=== PATIENT | female | born 1935 | race Caucasian/White ===

== ENCOUNTER 2018-11-01 18:33 | Observation (INO) | payer OTHER ==
--- OUTSIDE RECORDS SUMMARY | 2018-11-01 18:36 | XMS REPORT ---
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) Problem Cardiac defibrillator in place Z95.810 Active Problem Primary insomnia F51.01 Active Problem Nausea alone R11.0 Active Problem Anorexia R63.0 Active Problem Seasonal allergies J30.2 Active Problem Mixed hyperlipidemia E78.2 Active Problem Ischemic cardiomyopathy I25.5 Active Problem LBBB (left bundle branch block) I44.7 Active Problem PVD (peripheral vascular disease) I73.9 Active Problem Allergic rhinitis, unspecified J30.9 Active seasonality, unspecified trigger Problem Hypertension, unspecified type I10 Active Problem 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
--- OUTSIDE RECORDS SUMMARY | 2018-11-01 18:36 | XMS REPORT ---
:1935 Author Organization eClinicalWorks Care Team Providers Name Role Phone Obrja, [facility] Provider Role Unavailable Allergies, Adverse Reactions, Alerts Substance Reaction Event Type IVP dye Info Not Available Drug Allergy Lexiscan Info Not Available Drug Allergy Latex Info Not Available Drug Allergy Zelnorm Info Not Available Drug Allergy Oxycodone HCl Info Not Available Drug Allergy Norvasc Info Not Available Drug Allergy Zithromax Info Not Available Drug Allergy [place] Flavor Info Not Available Drug Allergy NIFEdipine Info Not Available Drug Allergy Mometasone Furoate Info Not Available Drug Allergy Lovastatin Info Not Available Drug Allergy Losartan Potassium Info Not Available Drug Allergy Kenalog Info Not Available Drug Allergy Dermatop Info Not Available Drug Allergy Cetaphil Info Not Available Drug Allergy Banana Concentrate Info Not Available Drug Allergy Altace Info Not Available Drug Allergy Actonel Info Not Available Drug Allergy Problems Problem Type Condition Code Onset Dates Condition Status Problem 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5 Active Assessment Ischemic cardiomyopathy I25.5 Active Assessment Hypertension, unspecified type I10 Active Assessment Allergic rhinitis, unspecified J30.9 Active seasonality, unspecified trigger Assessment Primary insomnia F51.01 Active Assessment 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 63030594220 10 MG Orally Active 1 tablet Calcium Once a day Levothyroxine [facility] 00176898119 75 MCG Orally Active 1 tablet Sodium Once a day on an empty stomach in the morning Metoprolol [facility] 21511961145 25 MG Orally Active 1 tablet Succinate ER Once a day Clopidogrel [facility] 55943522623 75 MG Orally Active 1 tablet Bisulfate Once a day Alprazolam [facility] 59420500400 0.5 MG Orally Active 1 tablet Once a day Results No Known Results Summary Purpose eClinicalWorks Submission
--- OUTSIDE RECORDS SUMMARY | 2018-11-01 18:37 | XMS REPORT ---
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
--- OUTSIDE RECORDS SUMMARY | 2018-11-01 18:37 | XMS REPORT ---
:1935 Author Organization eClinicalWorks Care Team Providers Name Role Phone Borja Formerly [facility] Provider Role Unavailable Allergies, Adverse Reactions, Alerts Substance Reaction Event Type IVP dye Info Not Available Drug Allergy Lexiscan Info Not Available Drug Allergy Latex Info Not Available Drug Allergy Zelnorm Info Not Available Drug Allergy Oxycodone HCl Info Not Available Drug Allergy Norvasc Info Not Available Drug Allergy Zithromax Info Not Available Drug Allergy [place] Flavor Info Not Available Drug Allergy NIFEdipine [...] Type Condition Code Onset Dates Condition Status Assessment Anxiety F41.9 Active Assessment Anorexia R63.0 Active Assessment Cardiac defibrillator in place Z95.810 Active Assessment PVD (peripheral vascular disease) I73.9 Active Assessment 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) Problem 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 Assessment Allergic rhinitis, unspecified J30.9 Active seasonality, unspecified trigger Problem Hypothyroidism, unspecified type E03.9 Active Assessment Primary insomnia F51.01 Active Problem LBBB (left bundle branch block) I44.7 Active Problem 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) Problem Anorexia R63.0 Active Problem Nausea alone R11.0 Active Problem Seasonal allergies J30.2 Active Assessment Hypertension, unspecified type I10 Active Assessment Ischemic cardiomyopathy I25.5 Active Problem Anxiety F41.9 Active Assessment 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 Problem Cardiac defibrillator in place Z95.810 Active Problem Primary insomnia F51.01 Active Problem Mixed hyperlipidemia E78.2 Active Problem Ischemic cardiomyopathy I25.5 Active Assessment Hypothyroidism, unspecified type E03.9 Active Assessment Mixed hyperlipidemia E78.2 Active Assessment Renal insufficiency N28.9 Active Problem Allergic rhinitis, unspecified J30.9 Active seasonality, unspecified trigger Problem Hypertension, unspecified type I10 Active Problem 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 Problem PVD (peripheral vascular disease) I73.9 Active Medications Medication Code Code Instructions Start End Status Dosage System Date Date Rosuvastatin [facility] 23561252277 10 MG Orally Active 1 tablet Calcium Once a day Clopidogrel [facility] 74144977317 75 MG Orally Active 1 tablet Bisulfate Once a day Zofran [facility] 47656003591 4 MG Orally Aug 09, Active 1 tablets every 8 hours 2017 for N/V Levothyroxine [facility] 31132574465 50 MCG Orally Inactive 1 tablet Sodium Once a day on an empty stomach in the morning Metoprolol [facility] 43446353172 25 MG Orally Active 1 tablet Succinate ER Once a day Levothyroxine [facility] 32179432177 75 MCG Orally Active 1 tablet Sodium Once a day on an empty stomach in the morning Alprazolam [facility] 91513388744 0.5 MG Orally Active 1 tablet Once a day at bedtime prn insomnia/ anxiety Results No Known Results Summary Purpose eClinicalWorks Submission
--- OUTSIDE RECORDS SUMMARY | 2018-11-01 18:37 | XMS REPORT ---
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
[2018-11-01 19:22] LABS: Absolute Monocytes 0.7 K/uL (0.1-1.3); Absolute Neutrophil 4.6 K/uL (1.8-8.0); Basophils % 0.8 % (0-1.3); Hematocrit 40.5 % (36.0-45.0); Lymphocytes % 15.4 % (15.3-44.8); MPV 8.7 fL (7.6-11.3); Monocytes % 10.1 % (3.3-12.3); RBC Red Blood Cell Count 4.81 M/uL (3.86-4.86)
[2018-11-01 19:35] LABS: Protime INR 1.01
[2018-11-01 19:44] LABS: Albumin 3.6 g/dL (3.4-5.0); Bilirubin Direct 0.2 mg/dL (0-0.2); Bilirubin Total 0.6 mg/dL (0.2-1.0); Magnesium 2.5 mg/dL (1.8-2.4); Potassium 4.4 mmol/L (3.5-5.1); Troponin (Emerg Dept Use Only) 0.02 ng/mL (0.0-0.045)
[2018-11-01] MEDS ORDERED: ASPIRIN 81 MG CHEWABLE TABLET ONE (20:05)
--- NOTE | 2018-11-01 20:10 | RAD REPORT ---
EXAM DESCRIPTION: RAD - Chest Single View - 11/01/2018 8:04 pm CLINICAL HISTORY: CHEST PAIN Chest pain. COMPARISON: No comparisons FINDINGS: Portable technique limits examination quality. Prominent emphysematous changes are present throughout the lungs with a small right pleural effusion. The heart is mildly enlarged in size with a single lead pacer/ defibrillator device. No displaced fr actures.Aortic atherosclerosis. IMPRESSION: COPD with small right pleural effusion.
--- NOTE | 2018-11-01 20:33 | ER ---
Nurse's Notes [facility] Name: Nasima Fry Age: 83 yrs Sex: Female : 1935 Arrival Date: 11/01/2018 Time: 18:37 Bed 25 Private MD: Diagnosis: Chest pain, unspecified Presentation: 11/01 18:46 Presenting complaint: EMS states: patient has shortness of breath and chest and back mg2 discomfort since 1700 today while cooking. Transition of care: patient was not received from another setting of care. Onset of symptoms was November 01, 2018 at 17:00. Risk Assessment: Do you want to hurt yourself or someone else? Patient reports no desire to harm self or others. Initial Sepsis Screen: Does the patient meet any 2 criteria? No. Patient's initial sepsis screen is negative. Does the patient have a suspected source of infection? No. Patient's initial sepsis screen is negative. Care prior to arrival: None. 18:46 Method Of Arrival: EMS: [facility] mg2 18:46 Acuity: LAYLA 3 mg2 Triage Assessment: 19:29 General: Appears in no apparent distress. comfortable, Behavior is calm, cooperative. mg2 22:24 Pain: Denies pain. mg2 Historical: - Allergies: 18:53 Hydrocodone-Acetaminophen; mg2 18:53 oxycodone; mg2 18:53 statin; mg2 18:53 IVP DYE; mg2 - Home Meds: 18:53 levothyroxine oral [Active]; Metoprolol Tartrate Oral [Active]; HLD meds [Active]; mg2 valsartan oral oral [Active]; - PMHx: 18:53 Hypothyroidism; 2 heart stents; mg2 - PSHx: 18:53 cataract surgery; Lumpectomy; left leg surgery; mg2 20:47 ICD; mg2 - Immunization history:: Flu vaccine is up to date. - Social history:: Smoking status: Patient/guardian denies using tobacco, Patient/guardian denies using alcohol, street drugs, IV drugs, Patient/guardian denies using The patient lives with family. - Ebola Screening: : No symptoms or risks identified at this time. - Family history:: not pertinent. Screenin:54 Abuse screen: Denies threats or abuse. Denies injuries from another. Nutritional mg2 screening: No deficits noted. Tuberculosis screening: No symptoms or risk factors identified. Fall Risk None identified. Assessment: 18:55 Reassessment: No changes from previously documented assessment. mg2 Vital Signs: 18:48 BP 156 / 86; Pulse 93; Resp 18; Temp 98; Pulse Ox 96% on R/A; Weight 36.29 kg; Height 5 mg2 ft. 0 in. (152.40 cm); Pain 4/10; 19:00 BP 153 / 66; Pulse 90; Resp 18; Pulse Ox 96% on R/A; mg2 19:00 BP 160 / 77; Pulse 87; Resp 18; Pulse Ox 98% on R/A; mg2 22:10 BP 149 / 68; Pulse 69; Resp 8; Pulse Ox 95% on R/A; Pain 0/10; mg2 18:48 Body Mass Index 15.62 (36.29 kg, 152.40 cm) mg2 ED Course: 18:37 Patient arrived in ED. mg2 18:45 Jennifer Ross MD is Attending Physician. ma2 18:46 Feliz Leo, [facility] is Primary Nurse. mg2 18:48 Triage completed. mg2 18:54 Arm band placed on. mg2 18:55 Patient has correct armband on for positive identification. traffic monitor specialist on. Pulse mg2 ox on. NIBP on. Door closed. Warm blanket given. 19:29 No provider procedures requiring assistance completed. Inserted saline lock: 20 gauge mg2 in left antecubital area, using aseptic technique. Blood collected. 20:06 XRAY Chest (1 view) In Process Unspecified. EDMS 20:32 Jennifer López MD is Hospitalizing Provider. ma2 22:25 Patient admitted, IV remains in place. mg2 Administered Medications: 19:56 Drug: Aspirin Chewable Tablet 324 mg Route: PO; mg2 20:44 Follow up: Response: No adverse reaction mg2 Outcome: 20:32 Decision to Hospitalize by Provider. ma2 22:25 Admitted to Tele accompanied by tech, via wheelchair, room 404, with chart, Report mg2 called to MULU Siddiqui 22:25 Condition: stable 22:25 Instructed on the need for admit, Demonstrated understanding of instructions. 22:51 Patient left the ED. mg2 Signatures: Dispatcher [employer] EDAK Jennifer Ross MD MD ma2 Feliz Leo RN RN mg2
--- NOTE | 2018-11-01 20:33 | EDPHYS ---
Physician Documentation [facility] Name: Nasima Fry Age: 83 yrs Sex: Female : 1935 Arrival Date: 11/01/2018 Time: 18:37 Bed 25 Private MD: ED Physician Jennifer Ross HPI: 11/01 19:07 This 83 yrs old Female presents to ER via EMS with complaints of chest pain. ma2 19:07 Onset: suddenly, 2 hour(s) ago. The pain radiates to Associated signs and symptoms: ma2 Pertinent positives: shortness of breath, Pertinent negatives: cough, dizziness, lower extremity swelling, vomiting. The chest pain is described as dull. Duration: The patient or guardian reports a single episode. Severity of pain: At its worst the pain was moderate in the emergency department the pain is unchanged. Historical: - Allergies: 18:53 Hydrocodone-Acetaminophen; mg2 18:53 oxycodone; mg2 18:53 statin; mg2 18:53 IVP DYE; mg2 - Home Meds: 18:53 levothyroxine oral [Active]; Metoprolol Tartrate Oral [Active]; HLD meds [Active]; mg2 valsartan oral oral [Active]; - PMHx: 18:53 Hypothyroidism; 2 heart stents; mg2 - PSHx: 18:53 cataract surgery; Lumpectomy; left leg surgery; mg2 20:47 ICD; mg2 - Immunization history:: Flu vaccine is up to date. - Social history:: Smoking status: Patient/guardian denies using tobacco, Patient/guardian denies using alcohol, street drugs, IV drugs, Patient/guardian denies using The patient lives with family. - Ebola Screening: : No symptoms or risks identified at this time. - Family history:: not pertinent. ROS: 19:07 Constitutional: Negative for fever, chills, and weight loss. ma2 19:07 Cardiovascular: Positive for chest pain, Negative for edema, palpitations, acute changes. 19:07 All other systems are negative. Exam: 19:07 Constitutional: This is a well developed, well nourished patient who is awake, alert, ma2 and in no acute distress. Chest/axilla: Normal chest wall appearance and motion. Nontender with no deformity. No lesions are appreciated. Cardiovascular: Regular rate and rhythm with a normal S1 and S2. No gallops, murmurs, or rubs. Normal PMI, no JVD. No pulse deficits. Respiratory: Lungs have equal breath sounds bilaterally, clear to auscultation and percussion. No rales, rhonchi or wheezes noted. No increased work of breathing, no retractions or nasal flaring. Abdomen/GI: Soft, non-tender, with normal bowel sounds. No distension or tympany. No guarding or rebound. No evidence of tenderness throughout. MS/ Extremity: Pulses equal, no cyanosis. Neurovascular intact. Full, normal range of motion. Neuro: Awake and alert, GCS 15, oriented to person, place, time, and situation. Cranial nerves II-XII grossly intact. Motor strength 5/5 in all extremities. Sensory grossly intact. Cerebellar exam normal. Normal gait. Vital Signs: 18:48 BP 156 / 86; Pulse 93; Resp 18; Temp 98; Pulse Ox 96% on R/A; Weight 36.29 kg; Height 5 mg2 ft. 0 in. (152.40 cm); Pain 4/10; 19:00 BP 153 / 66; Pulse 90; Resp 18; Pulse Ox 96% on R/A; mg2 19:00 BP 160 / 77; Pulse 87; Resp 18; Pulse Ox 98% on R/A; mg2 22:10 BP 149 / 68; Pulse 69; Resp 8; Pulse Ox 95% on R/A; Pain 0/10; mg2 18:48 Body Mass Index 15.62 (36.29 kg, 152.40 cm) mg2 MDM: 18:45 Patient medically screened. [facility] 19:07 Differential diagnosis: acute myocardial infarction, acute pericarditis, anxiety, ma2 coronary artery disease gastroesophageal reflux disease (GERD). HEART Score: History: Moderately Suspicious (1), ECG: Non specific repolarization disturbance / LBTB / PM (1), Age: > or = 65 years (2), Risk Factors: > or = 3 Risk factors for atherosclerotic disease (2), Total Score =. The patient was given aspirin in the Emergency Department. 20:31 Data reviewed: vital signs, nurses notes. Counseling: I had a detailed discussion with ma2 the patient and/or guardian regarding: the historical points, exam findings, and any diagnostic results supporting the discharge/admit diagnosis, the presence of at least one elevated blood pressure reading (>120/80) during this emergency department visit, the need for further work-up and treatment in the hospital. ED course: discussed with dr. lo. 11/01 19:01 Order name: Basic Metabolic Panel; Complete Time: 20:29 [facility] 11/01 19:01 Order name: CBC with Diff; Complete Time: 20:29 [facility] 11/01 19:01 Order name: LFT's; Complete Time: 20:29 [facility] 11/01 19:01 Order name: Magnesium; Complete Time: 20:29 [facility] 11/01 19:01 Order name: NT PRO-BNP; Complete Time: 20:29 [facility] 11/01 19:01 Order name: PT-INR; Complete Time: 20:29 [facility] 11/01 19:01 Order name: Troponin (emerg Dept Use Only); Complete Time: 20:29 [facility] 11/01 20:05 Order name: Urine Dipstick--Ancillary (enter results) [facility] 11/01 20:05 Order name: Urine --Ancillary (enter results) [facility] 11/01 20:55 Order name: Troponin I [facility] 11/01 20:55 Order name: Troponin I [facility] 11/01 20:55 Order name: Troponin I [facility] 11/01 20:56 Order name: Lipid Profile [facility] 11/01 20:56 Order name: Lipid Profile [facility] 11/01 19:01 Order name: XRAY Chest (1 view); Complete Time: 20:29 [facility] 11/01 19:01 Order name: EKG; Complete Time: 19: [facility] 11/01 19:01 Order name: Cardiac monitoring; Complete Time: 19: [facility] 11/01 19:01 Order name: EKG - Nurse/Tech; Complete Time: 19:28 [facility] 11/01 19:01 Order name: IV Saline Lock; Complete Time: 19:28 [facility] 11/01 19:01 Order name: Labs collected and sent; Complete Time: 19: [facility] 11/01 19:01 Order name: O2 Per Protocol; Complete Time: 19:28 [facility] 11/01 19:01 Order name: O2 Sat Monitoring; Complete Time: 19:29 [facility] 11/01 20:54 Order name: Heart Healthy [facility] 11/01 20:54 Order name: Echo with Doppler [facility] 11/01 20:54 Order name: EKG Electrocardiogram [facility] 11/01 20:54 Order name: EKG Electrocardiogram [facility] Administered Medications: 19:56 Drug: Aspirin Chewable Tablet 324 mg Route: PO; mg2 20:44 Follow up: Response: No adverse reaction mg2 Disposition: 11/01/18 20:32 Hospitalization ordered by Jennifer Lo for Observation. Preliminary diagnosis is Chest pain, unspecified. - Bed requested for Telemetry/MedSurg (observation). - Status is Observation. mg2 - Condition is Stable. - Problem is new. - Symptoms are unchanged. UTI on Admission? No Signatures: Dispatcher [employer] EDMS Kita Phillips RN RN kl Jennifer Ross MD MD ma2 Feliz Leo RN RN mg2 Corrections: (The following items were deleted from the chart) 21:50 20:32 Hospitalization Ordered by Jennifer Lo MD for Observation. Preliminary kl diagnosis is Chest pain, unspecified. Bed requested for Telemetry/MedSurg (observation). Status is Observation. Condition is Stable. Problem is new. Symptoms are unchanged. UTI on Admission? No. ma2 22:51 21:50 11/01/2018 20:32 Hospitalization Ordered by Jennifer Lo MD for Observation. mg2 Preliminary diagnosis is Chest pain, unspecified. Bed requested for Telemetry/MedSurg (observation). Status is Observation. Condition is Stable. Problem is new. Symptoms are unchanged. UTI on Admission? No. kl
[2018-11-01] MEDS ORDERED: ACETAMINOPHEN 500 MG TAB PO PRN (20:51)
[2018-11-01] MEDS ORDERED: ALPRAZOLAM 0.25 MG TABLET PO PRN (20:51)
[2018-11-01] MEDS ORDERED: MORPHINE 4 MG/ML SYR IV PRN (20:51)
[2018-11-01] MEDS ORDERED: METOPROLOL TAR 50 MG TAB PO SCH (21:00)
[2018-11-01] MEDS ORDERED: ATORVASTATIN 10 MG TAB PO SCH (21:00)
[2018-11-01 21:22] LABS: Urine Blood NEGATIVE (NEG); Urine Glucose NEGATIVE (NEG); Urine Protein 1+ (NEG); Urine pH 5.5 (5.0-7.0)
[2018-11-02 00:06] VITALS: O2SAT 93
[2018-11-02 00:07] VITALS: BMI 15.0
[2018-11-02 06:46] LABS: Troponin I 0.07 ng/mL (0.0-0.045)
--- NOTE | 2018-11-02 07:19 | EKG ---
Test Date: 2018-11-01 Test Time: 19:23:15 [employer]: MG MEASUREMENT RESULTS: Intervals: Rate: 87 OR: 140 QRSD: 138 QT: 388 QTc: 466 [place]: P: 65 OR: 140 QRS: 55 T: 236 INTERPRETIVE STATEMENTS: Normal sinus rhythm Left bundle branch block Abnormal ECG No previous ECG available for comparison Electronically Signed On 11-02-18 07:18:36 [employer] by Salvatore Meade
[2018-11-02] MEDS ORDERED: ASPIRIN EC 81 MG TAB PO SCH (09:00)
[2018-11-02] MEDS ORDERED: ENOXAPARIN 30 MG/0.3 ML SQ SCH (09:00)
[2018-11-02 10:11] VITALS: BP 127/58; TEMP 98.3
--- NOTE | 2018-11-08 03:56 | P.HP ---
Certification for Inpatient Patient admitted to: Observation With expected LOS: <2 Midnights Patient will require the following post-hospital care: None Practitioner: I am a practitioner with admitting privileges, knowledge of patient current condition, hospital course, and medical plan of care. Services: Services provided to patient in accordance with Admission requirements found in Title 42 Section 412.3 of the Code of Federal Regulations Patient History Date of Service: 11/01/18 Reason for admission: Chest pain rule out acute coronary syndrome History of Present Illness: Patient is an 83-year-old female came to the hospital with chest discomfort. Pain was mainly in the sternal region. There was no radiation. patient is clinically appearing to be better. At this time will do serial troponins and EKG. Rule out for acute coronary syndrome and proceed from there. Allergies hydrocodone Allergy (Mild, Verified 11/01/18 22:17) Anaphylaxis oxycodone Allergy (Mild, Verified 11/01/18 22:17) Anaphylaxis contrast dye Allergy (Mild, Uncoded 11/01/18 22:17) Anaphylaxis statins Allergy (Mild, Uncoded 11/01/18 22:17) Anaphylaxis Home Medications: ALPRAZolam [Xanax*] 0.5 mg PO BEDTIME PRN 11/01/18 Clopidogrel Bisulfate [Plavix*] 75 mg PO DAILY 11/01/18 Levothyroxine [Synthroid*] 75 mcg PO [id number] 11/01/18 Metoprolol Succinate [Toprol Xl*] 25 mg PO DAILY 11/01/18 Rosuvastatin [Crestor*] 10 mg PO BEDTIME 11/01/18 Valsartan 40 mg PO DAILY 11/01/18 - Past Medical/Surgical History Has patient received pneumonia vaccine in the past: Yes Diabetic: No -: hypertension -: heart stents -: hyperlipedemia -: hypothyroidism -: lumpectomy -: cataract surgery -: left leg stent - Family History Father Medical History: Liver disease Mother Medical History: Heart disease - Social History Smoking Status: Former smoker Alcohol use: No CD- Drugs: No Caffeine use: Yes Place of Residence: Home Review of Systems 10-point ROS is otherwise unremarkable Physical Examination - Vital Signs Temperature: 98.3 F Blood Pressure: 127/58 Pulse: 58 Respirations: 16 Pulse Ox (%): 91 - Physical Exam General: Alert, In no apparent distress, Oriented x3 HEENT: Atraumatic, PERRLA, Mucous membr. moist/pink, EOMI, Sclerae nonicteric Neck: Supple, 2+ carotid pulse no bruit, No LAD, Without JVD or thyroid abnormality Respiratory: Clear to auscultation bilaterally, Normal air movement Cardiovascular: Regular rate/rhythm, Normal S1 S2 Gastrointestinal: Normal bowel sounds, Hypoactive, Soft and benign, Non- distended, No tenderness Musculoskeletal: No clubbing, No swelling, No tenderness Integumentary: No rashes Neurological: Normal gait, Normal speech, Normal strength at 5/5 x4 extr, Normal tone, Normal affect Lymphatics: No axilla or inguinal lymphadenopathy Assessment & Plan - Problems (Diagnosis) (1) Chest pain, rule out acute myocardial infarction Status: Acute - Plan 1. Serial troponins and EKG 2. Appreciate Cardiology consultation 3. Echocardiogram and stress test if cardiology is agreeable 4. Anti-platelet therapy, anti coagulation, beta-rufino, statin, and O2 as needed 5. IV morphine for pain 6. Nitro p.r.n. Discharge Plan: Home Plan to discharge in: 48 Hours - Advance Directives Does patient have a Living Will: Yes Does patient have a Durable POA for Healthcare: Yes - Code Status/Comfort Care Code Status Assessed: Yes Code Status: Full Code Critical Care: No Time Spent Managing PTS Care (In Minutes): 45
--- NOTE | 2018-11-08 03:56 | P.DS ---
Discharge Date: 11/02/18 Disposition: ROUTINE DISCHARGE Discharge Condition: GOOD Brief History of Present Illness: Patient is an 83-year-old female came to the hospital with chest discomfort. Pain was mainly in the sternal region. There was no radiation. patient is clinically appearing to be better. At this time will do serial troponins and EKG. Rule out for acute coronary syndrome and proceed from there. Hospital Course: Patient was ruled out for acute coronary syndrome. Patient has serial troponins and EKG which were negative. Patient was discharge with outpatient follow with Cardiology. Patient also has a modified barium swallow study done which will be done this morning as an outpatient. Will get this scheduled. The chest pain is most likely related to this. Currently patient is asymptomatic and stable for discharge and will be beneficial to make shore patient is on a PPI going forward. Vital Signs/Physical Exam: Temp Pulse Resp BP Pulse Ox 98.3 F 58 16 127/58 L 91 11/08/18 03:56 11/08/18 03:56 11/08/18 03:56 11/08/18 03:56 11/08/18 03:56 General: Alert, In no apparent distress Laboratory Data at Discharge: WBC 6.7 K/uL (4.3-10.9) 11/01/18 19:10 Hgb 13.2 g/dL (12.0-15.0) 11/01/18 19:10 Hct 40.5 % (36.0-45.0) 11/01/18 19:10 Plt Count 199 K/uL (152-406) 11/01/18 19:10 PT 11.9 SECONDS (9.5-12.5) 11/01/18 19:10 INR 1.01 11/01/18 19:10 Sodium 138 mmol/L (136-145) 11/01/18 19:10 Potassium 4.4 mmol/L (3.5-5.1) 11/01/18 19:10 BUN 21 mg/dL (7-18) H 11/01/18 19:10 Creatinine 1.21 mg/dL (0.55-1.3) 11/01/18 19:10 Glucose 123 mg/dL (74-106) H 11/01/18 19:10 Magnesium 2.5 mg/dL (1.8-2.4) H 11/01/18 19:10 Total Bilirubin 0.6 mg/dL (0.2-1.0) 11/01/18 19:10 AST 36 U/L (15-37) 11/01/18 19:10 ALT 32 U/L (12-78) 11/01/18 19:10 Alkaline Phosphatase 87 U/L (45-117) 11/01/18 19:10 Troponin I 0.07 ng/mL (0.0-0.045) H 11/02/18 05:48 Triglycerides 87 mg/dL (<150) 11/02/18 05:48 Cholesterol 155 mg/dL (<200) 11/02/18 05:48 HDL Cholesterol 80 mg/dL (40-60) H 11/02/18 05:48 Cholesterol/HDL Ratio 1.94 11/02/18 05:48 Home Medications: ALPRAZolam [Xanax*] 0.5 mg PO BEDTIME PRN 11/01/18 Clopidogrel Bisulfate [Plavix*] 75 mg PO DAILY 11/01/18 Levothyroxine [Synthroid*] 75 mcg PO [id number] 11/01/18 Metoprolol Succinate [Toprol Xl*] 25 mg PO DAILY 11/01/18 Rosuvastatin [Crestor*] 10 mg PO BEDTIME 11/01/18 Valsartan 40 mg PO DAILY 11/01/18 Patient Discharge Instructions: OK TO DC IV AND DC HOME IF 6AM TROPONIN ARE NEGATIVE. FOLLOW-UP WITH DR. MEADE AN OUTPT. PLEASE HAVE PATIENT GO TO RADIOLOGY BY 8:30 AM TO GET MODIFIED BARIUM SWALLOW STUDY. CALL DR. TRUONG AT IF ANY QUESTIONS REGARDING HOSPITAL STAY. RETURN TO THE ER IF SYMPTOMS WORSENS Diet: Regular Activity: Fall precautions Followup: Salvatore Meade MD [ACTIVE - CAN ADMIT] - (call to schedule an appointment) Srini Borja DO [ACTIVE - CAN ADMIT] - Time spent managing pt's care (in minutes): 30
== END 2018-11-02 07:57 | disposition home or self-care (01) ==
LOC: ER 18:33 → ERHOLD 21:39 → 4TH 22:32
PROVIDERS: ADMIT Hospitalist; ATTEND Hospitalist
DX: R07.9 Chest pain, unspecified (principal); I10 Essential (primary) hypertension; E03.9 Hypothyroidism, unspecified; E78.5 Hyperlipidemia, unspecified; Z87.891 Personal history of nicotine dependence
CPT/HCPCS: 36415; 71045; 80048; 80061; 80076; 81003; 81025; 83735; 83880; 84484 ×3; 85025; 85610; 93005; 99285; G0378 ×2